=== PATIENT | female | born 1980 | race Hispanic/Latino ===

== ENCOUNTER 2016-10-20 13:56 | Emergency (ER) | payer SELFPAY ==
[2016-10-20] MEDS ORDERED: Sodium Chloride 0.9% 500 ML IV STA (14:36)
--- NOTE | 2016-10-20 14:41 | ED PDOC ---
Arrival/HPI - General Chief Complaint: Abdominal Pain Time Seen by Provider: 10/20/16 14:08 Historian: Patient - History of Present Illness Time/Duration: 1 week Symptom Onset: Gradual Symptom Course: Worsening Quality: Pressure Severity Level: Mild Activities at Onset: Rest Associated Symptoms (Text): 10/20/16 14:38 Patient complains of approximately a one-week history of lower abdominal pain along with bloody stools. She was seen in another hospital emergency department 4 days ago and had blood work done and was told everything was normal. This morning she woke up and was dizzy and lightheaded and again had a bloody bowel movement and came to the emergency department. She is extremely anxious which is chronic. She denies chest pain palpitations or dyspnea. No nausea vomiting or diarrhea. No genitourinary symptoms. No vaginal discharge or bleeding. She does not take aspirin or NSAIDs. No headache. Past Medical History - Cardiac Hx Cardiac Disorders: No - Pulmonary Hx Respiratory Disorders: No - Neurological Hx Neurological Disorder: No - HEENT Hx HEENT Disorder: No - Renal Hx Renal Disorder: No - Endocrine/Metabolic Hx Endocrine Disorders: No - Hematological/Oncological Hx Blood Disorders: No - Integumentary Hx Dermatological Disorder: No - Musculoskeletal/Rheumatological Hx Musculoskeletal Disorders: No - Gastrointestinal Hx Gastrointestinal Disorders: No - Genitourinary/Gynecological Hx Genitourinary Disorders: No - Psychiatric Hx Anxiety: Yes Hx Substance Use: No - Surgical History Hx Thyroidectomy: Yes Family/Social History - Physician Review Nursing Documentation Reviewed: Yes Family/Social History: Unknown Family HX Smoking Status: Never Smoked Hx Alcohol Use: Yes Frequency of alcohol use: Socially Hx Substance Use: No Allergies/Home Meds Allergies/Adverse Reactions: Allergies Penicillins Allergy (Severe, Verified 10/20/16 14:23) ANAPHYLAXIS Sulfa (Sulfonamide Antibiotics) Allergy (Severe, Verified 10/20/16 14:23) RASH Home Medications: Home Meds Medication Instructions Recorded Confirmed clonazePAM [Klonopin] 1 mg PO DAILY 10/20/16 10/20/16 Review of Systems - Physician Review All systems were reviewed & negative as marked: Yes - Review of Systems Constitutional: Fatigue. absent: Fevers Respiratory: Normal. absent: SOB, Cough, Wheezing Cardiovascular: absent: Chest Pain, Palpitations, Syncope Gastrointestinal: Abdominal Pain, Hematochezia. absent: Constipation, Diarrhea , Nausea, Vomiting, Hematemesis, Anorexia Genitourinary Female: absent: Dysuria, Frequency, Hematuria, Vaginal Bleeding, Vaginal Discharge Neurological: absent: Headache, Dizziness, Focal Weakness, Gait Changes Physical Exam Vital Signs Temp Pulse Resp BP Pulse Ox 10/20/16 16:38 98.3 F 69 16 120/56 L 98 10/20/16 14:53 99.4 F 72 18 113/81 96 10/20/16 14:15 98.9 F 77 18 125/83 96 Temperature: Afebrile Blood Pressure: Normal Pulse: Regular Respiratory Rate: Normal Appearance: Positive for: Well-Appearing, Non-Toxic, Comfortable, Other (Anxious ) Pain Distress: None Mental Status: Positive for: Alert and Oriented X 3 - Systems Exam Head: Present: Atraumatic, Normocephalic Pupils: Present: PERRL Extroacular Muscles: Present: EOMI Conjunctiva: Present: Normal Mouth: Present: Moist Mucous Membranes Pharnyx: No: ERYTHEMA, EXUDATE, TONSILS ENLARGED Neck: Present: Normal Range of Motion. No: Meningeal Signs, MIDLINE TENDERNESS , Paraspinal Tenderness Respiratory/Chest: Present: Clear to Auscultation, Good Air Exchange. No: Respiratory Distress, Accessory Muscle Use Cardiovascular: Present: Regular Rate and Rhythm, Normal S1, S2. No: Murmurs Abdomen: Present: Normal Bowel Sounds. 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 No: Rectal Tenderness, Gross Blood, Melena, Hemorrhoids, Normal Rectal Tone, Fissures, Nodule/Mass/Lesions Upper Extremity: Present: Normal Inspection. No: Cyanosis, Edema Lower Extremity: Present: Normal Inspection. No: Edema Neurological: Present: GCS=15, CN II-XII Intact, Speech Normal, Motor Func Grossly Intact Skin: Present: Warm, Dry, Normal Color. No: Rashes Psychiatric: Present: Alert, Oriented x 3, Normal Insight, Normal Concentration , Anxious Medical Decision Making ED Course and Treatment: 10/20/16 15:29 chest xray: Creator : Jacob Simmons MD IMPRESSION: No active disease. 10/20/16 16:20 Workup is unrevealing. She does have brown guaiac positive stool. Her hemoglobin is normal. She will be started on an H2 hailey and follow up in the clinic for a GI referral. Follow-up in the ER as needed. 10/20/16 16:22 EKG shows normal sinus rhythm rate approximately [address] or T-wave changes - Lab Interpretations Lab Results: 10/20/16 14:55 10/20/16 14:36 Lab Results 10/20/16 16:00: Blood Type Confirm O POSITIVE 10/20/16 14:55: Urine Color Yellow, Urine Appearance Clear, Urine pH 6.5, Ur Specific [place] 1.010, Urine Protein Negative, Urine Glucose (UA) Negative, Urine Ketones Negative, Urine Blood Trace-lysed H, Urine Nitrate Negative, Urine Bilirubin Negative, Urine Urobilinogen 0.2, Ur Leukocyte Esterase Negative , Urine RBC 0 - 2, Urine WBC 0 - 2, Ur Epithelial Cells 0 - 2, Urine Bacteria Trace 10/20/16 14:55: WBC 7.1, RBC 4.50, Hgb 14.9, Hct 41.4, MCV 92.0, MCH 33.1, MCHC 36.0, RDW 12.5, Plt Count 230, MPV 10.3, Gran % 61.2, Lymph % (Auto) 31.0, [place] % (Auto) 6.6 H, Eos % (Auto) 0.8 L, Baso % (Auto) 0.4, Gran # 4.36, Lymph # 2.2 , [place] # 0.5, Eos # 0.1, Baso # 0.03 10/20/16 14:36: Blood Type O POSITIVE, Antibody Screen Negative, BBK History Checked No verified bt 10/20/16 14:36: Sodium 142, Potassium 4.2, Chloride 102, Carbon Dioxide 27, Anion Gap 17, BUN 12, Creatinine 0.9, Est GFR ( Amer) > 60, Est GFR (Non- Af Amer) > 60, Random Glucose 92, Calcium 9.6, Total Bilirubin 0.9, AST 30, ALT 31, Alkaline Phosphatase 51, Lactate Dehydrogenase 352, Total Creatine Kinase 62 , Troponin I < 0.01, Total Protein 8.5 H, Albumin 5.0 H, Globulin 3.5, Albumin/ Globulin Ratio 1.4, Amylase 55, Lipase 80 10/20/16 14:36: PT 10.9, INR 1.01, APTT 30.1 - RAD Interpretation Radiology Orders: 10/20/16 14:36 CHEST PORTABLE [RAD] Stat Chest 1 view shows no infiltrate effusion or cardiomegaly Floatlight Powder Mixer: Radiologist - Medication Orders Current Medication Orders: Discontinued Medications Sodium Chloride (Sodium Chloride 0.9%) 500 mls @ 1,000 mls/hr IV .Q30M STA Stop: 10/20/16 15:05 Last Admin: 10/20/16 15:08 Dose: 1,000 mls/hr Pantoprazole Sodium (Protonix Inj) 80 mg IVP STAT STA Stop: 10/20/16 14:37 Last Admin: 10/20/16 15:17 Dose: Not Given Non-Admin Reason: Patient Refused Disposition/Present on Arrival - Present on Arrival Any Indicators Present on Arrival: No History of DVT/PE: No History of Uncontrolled Diabetes: No Urinary Catheter: No History of Decub. Ulcer: No History Surgical Site Infection Following: None - Disposition Have Diagnosis and Disposition been Completed?: Yes Diagnosis: Gastrointestinal hemorrhage Disposition: HOME/ ROUTINE Disposition Time: 16:23 Patient Plan: Discharge Condition: GOOD Discharge Instructions (ExitCare): Gastrointestinal Bleeding (ED) Prescriptions: Pantoprazole Sodium [Protonix] 40 mg PO DAILY #20 ect Referrals: PCP,NO [Primary Care Provider] - Follow up with primary [facility] [place] - Follow up with primary Forms: [employer] (Cam[place]onian)
[2016-10-20 15:22] LABS: BASO # 0.03 K/mm3 (0.0-2.0); BASO % 0.4 % (0.0-3.0); EOS # 0.1 (0.0-0.7); EOS % 0.8 % (1.5-5.0); GRAN # 4.36 (1.4-6.5); GRAN % 61.2 % (50.0-68.0); HEMATOCRIT 41.4 % (36.0-48.0); LYMPH # 2.2 (1.2-3.4); MEAN CORPUSCULAR HEMOGLOBIN 33.1 pg (25.0-35.0); MEAN PLATELET VOLUME 10.3 fl (7.0-11.0); MONO # 0.5 (0.1-0.6); MONO % 6.6 % (1.0-6.0); RED CELL DISTRIBUTION WIDTH 12.5 % (11.5-14.5); WHITE BLOOD COUNT 7.1 10^3/ul (4.5-11.0)
--- NOTE | 2016-10-20 15:27 | RAD ---
HISTORY: GIB COMPARISON: No prior. FINDINGS: LUNGS: No active pulmonary disease. PLEURA: No significant pleural effusion identified, no pneumothorax apparent. CARDIOVASCULAR: Normal. OSSEOUS STRUCTURES: No significant abnormalities. VISUALIZED UPPER ABDOMEN: Normal. OTHER FINDINGS: None. IMPRESSION: No active disease.
[2016-10-20 15:28] LABS: INR 1.01 (0.93-1.08); PARTIAL THROMBOPLASTIN TIME 30.1 Seconds (23.7-30.8)
[2016-10-20 15:36] LABS: ALB/GLOB RATIO 1.4 (1.1-1.8); ALKALINE PHOSPHATASE 51 U/L (38-133); ALT/SGPT 31 U/L (7-56); AMYLASE 55 U/L (35-125); AST/SGOT 30 U/L (15-39); BILIRUBIN,TOTAL 0.9 mg/dL (0.2-1.3); BLOOD UREA NITROGEN 12 mg/dL (7-21); CALCIUM 9.6 mg/dL (8.4-10.5); CARBON DIOXIDE 27 mmol/L (21-33); CHLORIDE 102 mmol/L (98-107); GFR AFRICAN-AMERICAN > 60; GLUCOSE,RANDOM 92 mg/dL (70-110); LIPASE 80 U/L (23-300); POTASSIUM 4.2 mmol/L (3.6-5.0); SODIUM 142 mmol/L (132-148); TOTAL PROTEIN 8.5 g/dL (5.8-8.3)
[2016-10-20 15:47] LABS: PH,URINE 6.5 (4.7-8.0); URINE BILIRUBIN NEGATIVE (NEGATIVE); URINE BLOOD TRACE-LYSED (NEGATIVE); URINE GLUCOSE (UA) NEGATIVE (NEGATIVE); URINE KETONE NEGATIVE (NEGATIVE); URINE LEUKOCYTE ESTERASE NEGATIVE Leu/uL (NEGATIVE); URINE PROTEIN NEGATIVE mg/dL (<30 mg/dL); URINE UROBILINOGEN 0.2 E.U./dL (<1 E.U./dL)
[2016-10-20 15:47] LABS: TROPONIN I < 0.01 ng/mL
[2016-10-20 15:48] LABS: URINE APPEARANCE CLEAR (CLEAR); URINE COLOR YELLOW (YELLOW)
[2016-10-20 15:58] LABS: URINE BACTERIA TRACE (NEG); URINE EPITHELIAL CELLS 0 - 2 /hpf (0-5); URINE RBC 0 - 2 /hpf (0-2); URINE WBC 0 - 2 /hpf (0-6)
[2016-10-20 16:39] VITALS: BP 120/56; PULSE 69; RESP 16; TEMP 98.3; O2SAT 98
--- NOTE | 2016-10-20 23:12 | CARD ---
APPROVED REPORT EKG Measurement Heart [id number] <Conclusion> Normal sinus rhythm Normal ECG
== END 2016-10-20 16:39 | disposition home or self-care (01) ==
LOC: ED 13:56
DX: K92.2 Gastrointestinal hemorrhage, unspecified (principal)
CPT/HCPCS: 71010; 80053; 81001; 82150; 82550; 83615; 83690; 84484; 85025; 85610; 85730; 86850; 86900; 93005; 99283; J7040

== ENCOUNTER 2017-08-02 17:34 | Emergency (ER) | payer OTHER ==
[2017-08-02 17:52] VITALS: BMI 25.6
[2017-08-02 17:57] VITALS: RESP 18; O2SAT 100
[2017-08-02] MEDS ORDERED: Sodium Chloride 0.9% 1,000 ML IV STA (18:42)
[2017-08-02 19:49] LABS: BASO # 0.03 K/mm3 (0.0-2.0); BASO % 0.3 % (0.0-3.0); EOS # 0.1 (0.0-0.7); EOS % 1.1 % (1.5-5.0); GRAN # 6.79 (1.4-6.5); GRAN % 59.7 % (50.0-68.0); HEMOGLOBIN 12.6 g/dL (12.0-16.0); LYMPH % 35.2 % (22.0-35.0); MEAN CELL VOLUME 91.3 fl (80.0-105.0); MEAN CORPUSCULAR HEMOGLOBIN 32.1 pg (25.0-35.0); MEAN CORPUSCULAR HGB CONC 35.1 g/dl (31.0-37.0); MEAN PLATELET VOLUME 10.1 fl (7.0-11.0); MONO # 0.4 (0.1-0.6); MONO % 3.7 % (1.0-6.0); RBC 3.93 10^6/uL (3.5-6.1); RED CELL DISTRIBUTION WIDTH 11.9 % (11.5-14.5); WHITE BLOOD COUNT 11.4 10^3/ul (4.5-11.0)
[2017-08-02 19:56] LABS: ALB/GLOB RATIO 1.4 (1.1-1.8); ALBUMIN 4.3 g/dL (3.0-4.8); ALT/SGPT 30 U/L (7-56); AST/SGOT 19 U/L (14-36); BLOOD UREA NITROGEN 5 mg/dL (7-21); CALCIUM 8.9 mg/dL (8.4-10.5); GFR AFRICAN-AMERICAN > 60; GFR NON-AFRICAN AMERICAN > 60
--- NOTE | 2017-08-02 20:28 | ED PDOC ---
Arrival/HPI - General Chief Complaint: Female Genitourinary Time Seen by Provider: 08/02/17 18:41 Historian: Patient - History of Present Illness Narrative History of Present Illness (Text): 08/02/17 20:34 37yr old female presents with concerns of vaginal bleeding. Patient states she had a spontaneous miscarriage 6 weeks ago early on in . Patient states she didn't know how she was started to develop vaginal bleeding and was seen by charge out clerk and told she had a spontaneous miscarriage. pt states the bleeding completely stopped about 6 weeks ago and Patient states she was told that she would bleed again in 4-6 weeks. Patient states it is 6 weeks and she is bleeding now. Patient states she's nervous because she is having some lower abdominal pain and vaginal bleeding. patient denies any urinary symptoms. No chest pain or shortness of breath. Patient denies dizziness. She is complaining of generalized fatigue. No other complaints. Past Medical History - Provider Review Nursing Documentation Reviewed: Yes - Travel History Have you recently traveled outside [place] w/in the past 3 mons?: No - Infectious Disease Hx of Infectious Diseases: None - Cardiac Hx Cardiac Disorders: No - Pulmonary Hx Respiratory Disorders: No - Neurological Hx Neurological Disorder: No - HEENT Hx HEENT Disorder: No - Renal Hx Renal Disorder: No - Endocrine/Metabolic Hx Endocrine Disorders: No - Hematological/Oncological Hx Blood Disorders: No - Integumentary Hx Dermatological Disorder: No - Musculoskeletal/Rheumatological Hx Musculoskeletal Disorders: No - Gastrointestinal Hx Gastrointestinal Disorders: No - Genitourinary/Gynecological Hx Genitourinary Disorders: No - Psychiatric Hx Anxiety: Yes Hx Substance Use: No - Surgical History Hx Thyroidectomy: Yes - Anesthesia Hx Anesthesia: Yes Hx Anesthesia Reactions: No Hx Malignant Hyperthermia: No Family/Social History - Physician Review Nursing Documentation Reviewed: Yes Family/Social History: Unknown Family HX Smoking Status: Never Smoked Hx Alcohol Use: Yes Hx Substance Use: No Allergies/Home Meds Allergies/Adverse Reactions: Allergies Penicillins Allergy (Severe, Verified 10/20/16 14:23) ANAPHYLAXIS Sulfa (Sulfonamide Antibiotics) Allergy (Severe, Verified 10/20/16 14:23) RASH Home Medications: Home Meds Medication Instructions Recorded Confirmed clonazePAM [Klonopin] 1 mg PO DAILY PRN 10/20/16 08/02/17 Review of Systems - Review of Systems Constitutional: absent: Fatigue, Fevers Respiratory: absent: SOB, Cough Cardiovascular: absent: Chest Pain, Palpitations Gastrointestinal: Abdominal Pain, Nausea, Vomiting. absent: Constipation, Diarrhea Genitourinary Female: Vaginal Bleeding. absent: Dysuria, Frequency, Hematuria Musculoskeletal: absent: Arthralgias, Back Pain, Neck Pain Skin: absent: Rash, Pruritis Neurological: absent: Headache, Dizziness Psychiatric: absent: Anxiety, Depression, Suicidal Ideation Physical Exam Vital Signs Reviewed: Yes Vital Signs Temp Pulse Resp BP Pulse Ox 08/02/17 23:04 98.2 F 80 18 120/82 100 08/02/17 22:22 98.2 F 80 18 120/82 100 08/02/17 17:56 98.5 F 69 18 115/79 100 Temperature: Afebrile Blood Pressure: Normal Pulse: Regular Respiratory Rate: Normal Appearance: Positive for: Well-Appearing, Non-Toxic, Comfortable Pain Distress: None Mental Status: Positive for: Alert and Oriented X 3 - Systems Exam Head: Present: Atraumatic Mouth: Present: Moist Mucous Membranes Neck: Present: Normal Range of Motion Respiratory/Chest: Present: Clear to Auscultation, Good Air Exchange. No: Respiratory Distress, Accessory Muscle Use Cardiovascular: Present: Regular Rate and Rhythm, Normal S1, S2. No: Murmurs Abdomen: No: Tenderness, Distention, Peritoneal Signs, Rebound, Guarding Genitourinary/Pelvic Exam: Present: Other (PT REFUSED PELVIC EXAMINATION) Back: Present: Normal Inspection Upper Extremity: Present: Normal ROM Lower Extremity: Present: Normal ROM Neurological: Present: GCS=15, Speech Normal Skin: Present: Warm, Dry, Normal Color. No: Rashes Psychiatric: Present: Alert, Oriented x 3 Medical Decision Making ED Course and Treatment: 08/02/17 21:49 Patient is nontoxic well appearing in no distress. vital signs are stable. CBC: WBC;11.4 CMP: WNL Beta hCG: NEGATIVE TYPE AND SCREEN: O+ (10/20/16) Urinalysis: + BLOOD, TRACE LEUKOCYTES, PT DENIES ANY URINARY SYMPTOMS. PT REFUSING PELVIC EXAMINATION Ultrasound:FINDINGS: Uterus/cervix: Uterus measures 8.4 x 4.3 x 5.4 cm in size. No myometrial mass. Probable nabothian cyst. Endometrium: 1.0 cm in thickness. Right ovary: 3.7 x 3.2 x 2.2 cm in size. 1.6 x 1.8 x 1.8 cm anechoic lesion. Normal flow. Left ovary: 2.7 x 2.2 x 2.6 cm in size. No mass. Normal flow. Free fluid: No significant free fluid. Bladder: Unremarkable as visualized. IMPRESSION: 1. RIGHT ovarian cyst. 2. Incidental/non-acute findings are described above. Discussed all the results the patient. advised f/u with the community health nurse supervisor within the next 2 days. advised immediate return if symptoms worsen,persist or if new symptoms develop. Impression: VAGINAL BLEEDING, OVARIAN CYST increase fluids Follow up with the primary care physician within the next 2days. Follow up with the MENTALLY RETARDED TEACHER within the next 2 days. Return if symptoms worsen persist or if new symptoms develop; high fevers, increasing pain, or if any other concerning symptoms develop. Reassessment Condition: Re-examined, Improved - Lab Interpretations Lab Results: 08/02/17 19:38 08/02/17 19:38 Lab Results 08/02/17 21:51: Urine Color Yellow, Urine Appearance Clear, Urine pH 6.0, Ur Specific [place] 1.010, Urine Protein Negative, Urine Glucose (UA) Negative, Urine Ketones Negative, Urine Blood Large H, Urine Nitrate Negative, Urine Bilirubin Negative, Urine Urobilinogen 0.2, Ur Leukocyte Esterase Trace H, Urine RBC 25 - 30, Urine WBC 2 - 5, Ur Epithelial Cells 6 - 8 08/02/17 19:38: Beta HCG, Quant < 2.39 08/02/17 19:38: WBC 11.4 H D, RBC 3.93, Hgb 12.6 D, Hct 35.9 L, MCV 91.3, MCH 32.1, MCHC 35.1, RDW 11.9, Plt Count 230, MPV 10.1, Gran % 59.7, Lymph % (Auto) 35.2 H, [place] % (Auto) 3.7, Eos % (Auto) 1.1 L, Baso % (Auto) 0.3, Gran # 6.79 H , Lymph # (Auto) 4.0 H, [place] # (Auto) 0.4, Eos # (Auto) 0.1, Baso # (Auto) 0.03 08/02/17 19:38: Sodium 142, Potassium 4.3, Chloride 105, Carbon Dioxide 27, Anion Gap 15, BUN 5 L, Creatinine 0.8, Est GFR ( Amer) > 60, Est GFR (Non -Af Amer) > 60, Random Glucose 93, Calcium 8.9, Total Bilirubin 0.2, AST 19, ALT 30, Alkaline Phosphatase 53, Total Protein 7.4, Albumin 4.3, Globulin 3.1, Albumin/Globulin Ratio 1.4 - RAD Interpretation Radiology Orders: 08/02/17 18:42 TRANSVAGINAL [US] Stat - Medication Orders Current Medication Orders: Discontinued Medications Sodium Chloride (Sodium Chloride 0.9%) 1,000 mls @ 999 mls/hr IV .Q1H1M STA Stop: 08/02/17 19:42 Last Admin: 08/02/17 19:36 Dose: 999 mls/hr eMAR Start Stop Document 08/02/17 19:36 HI (Rec: 08/02/17 19:53 HI [id number]) Intravenous Solution Start Date 08/02/17 Start Time 19:36 Disposition/Present on Arrival - Present on Arrival Any Indicators Present on Arrival: No History of DVT/PE: No History of Uncontrolled Diabetes: No Urinary Catheter: No History of Decub. Ulcer: No History Surgical Site Infection Following: None - Disposition Have Diagnosis and Disposition been Completed?: Yes Diagnosis: Vaginal bleeding, Ovarian cyst Disposition: HOME/ ROUTINE Disposition Time: 21:45 Patient Plan: Discharge Condition: UNKNOWN Discharge Instructions (ExitCare): Ovarian Cysts Additional Instructions: increase fluids Follow up with the primary care physician within the next 2days. Follow up with the MENTALLY RETARDED TEACHER within the next 2 days. Return if symptoms worsen persist or if new symptoms develop; high fevers, increasing pain, or if any other concerning symptoms develop. Referrals: Sukumar Whittaker MD [Staff Provider] - Follow up with primary Imani Aldridge MD [Staff Provider] - Follow up with primary Forms: [employer] (Swiss), WORK NOTE
--- NOTE | 2017-08-02 20:55 | US ---
EXAM: US Pelvis Complete, Transabdominal US Pelvis, Transvaginal US Duplex Arterial/Venous of the Pelvis, Complete CLINICAL HISTORY: 37 years old, female; Pain; Pelvic pain TECHNIQUE: Real-time transabdominal and transvaginal pelvic ultrasound (complete) with image documentation. Transvaginal imaging was used for better evaluation of the endometrium and adnexa. Real-time duplex ultrasound scan of the arterial and venous flow of the pelvis with color Doppler flow and spectral waveform analysis. COMPARISON: No relevant prior studies available. FINDINGS: Uterus/cervix: Uterus measures 8.4 x 4.3 x 5.4 cm in size. No myometrial mass. Probable nabothian cyst. Endometrium: 1.0 cm in thickness. Right ovary: 3.7 x 3.2 x 2.2 cm in size. 1.6 x 1.8 x 1.8 cm anechoic lesion. Normal flow. Left ovary: 2.7 x 2.2 x 2.6 cm in size. No mass. Normal flow. Free fluid: No significant free fluid. Bladder: Unremarkable as visualized. IMPRESSION: 1. RIGHT ovarian cyst. 2. Incidental/non-acute findings are described above.
[2017-08-02 22:02] LABS: URINE BILIRUBIN NEGATIVE (NEGATIVE); URINE BLOOD LARGE (NEGATIVE); URINE GLUCOSE (UA) NEGATIVE (NEGATIVE); URINE LEUKOCYTE ESTERASE TRACE Leu/uL (NEGATIVE); URINE PROTEIN NEGATIVE mg/dL (<30 mg/dL); URINE UROBILINOGEN 0.2 E.U./dL (<1 E.U./dL)
[2017-08-02 22:03] LABS: URINE APPEARANCE CLEAR (CLEAR); URINE COLOR YELLOW (YELLOW)
[2017-08-02 22:15] LABS: URINE RBC 25 - 30 /hpf (0-2)
[2017-08-02 22:58] VITALS: BP 120/82; PULSE 80; TEMP 98.2
== END 2017-08-02 22:22 | disposition home or self-care (01) ==
LOC: ED 17:34
DX: N93.9 Abnormal uterine and vaginal bleeding, unspecified (principal); N83.201 Unspecified ovarian cyst, right side
CPT/HCPCS: 76830; 80053; 81001; 84702; 85025; 87086; 99284; J7030